=== PATIENT | male | born 1960 | race Hispanic/Latino ===

== ENCOUNTER 2019-09-11 10:28 | Emergency (ER) | payer OTHER ==
[2019-09-11 10:37] VITALS: BP 127/87
--- NOTE | 2019-09-11 10:57 | Emergency Department Report ---
ED Extremity Problem HPI - General Chief complaint: Extremity Injury, Lower Stated complaint: LEFT Time Seen by Provider: 09/11/19 10:51 Source: patient Mode of arrival: Ambulatory Limitations: No Limitations - History of Present Illness Initial comments: 58-year-old male presents to the emergency room complaining of right lower leg swelling redness and inflamed. Patient states he has had a history of this before. Patient states that he has not been on his Lasix. Patient states he is scratched his leg and now has an opening for him. This is all been going on for the last 3 weeks. Patient currently is at a detox center and has been out of his meds and not able to follow-up with his primary care provider. Patient denies any fever chills no nausea no vomiting no chest pain MD Complaint: extremity pain, extremity swelling Onset/Timin -: week(s) Location: right History of Same: Yes Severity scale (0 -10): 5 Quality: aching Consistency: constant Improves with: medication (Lasix and antibiotics) Worsens with: nothing - Related Data Home Medications Medication Instructions Recorded Confirmed Last Taken Furosemide [Lasix TAB] 1 tab PO DAILY 09/11/19 09/11/19 Unknown Olmesartan/Hydrochlorothiazide 1 tab PO DAILY 09/11/19 09/11/19 Unknown [Olmesartan-Hctz 40-25 mg Tab] Previous Rx's Medication Instructions Recorded Last Taken Type Doxycycline Hyclate 100 mg PO BID 10 Days #20 tablet. 09/11/19 Unknown Rx predniSONE [Deltasone] 10 mg PO QDAY 5 Days #5 tab 09/11/19 Unknown Rx Allergies Allergy/AdvReac Type Severity Reaction Status Date / Time No Known Allergies Allergy Unverified 09/11/19 10:32 ED Review of Systems ROS: Stated complaint: LEFT Other details as noted in HPI ED Past Medical Hx - Past Medical History Previous Medical History?: Yes Hx Psychiatric Treatment: Yes (Opiod dependency) Additional medical history: right leg pain/swelling, Back pain - Surgical History Past Surgical History?: Yes Additional Surgical History: Back - Social History Smoking Status: Current Every Day Smoker Substance Use Type: Alcohol, Non Opiate Pain, Prescribed - Medications Home Medications: Home Medications Medication Instructions Recorded Confirmed Last Taken Type Doxycycline Hyclate 100 mg PO BID 10 Days #20 tablet. 09/11/19 Unknown Rx Furosemide [Lasix TAB] 1 tab PO DAILY 09/11/19 09/11/19 Unknown History Olmesartan/Hydrochlorothiazide 1 tab PO DAILY 09/11/19 09/11/19 Unknown History [Olmesartan-Hctz 40-25 mg Tab] predniSONE [Deltasone] 10 mg PO QDAY 5 Days #5 tab 09/11/19 Unknown Rx ED Physical Exam - General Limitations: No Limitations General appearance: alert, in no apparent distress - Head Head exam: Present: atraumatic, normocephalic - Eye Eye exam: Present: normal appearance - ENT ENT exam: Present: mucous membranes moist - Expanded Lower Extremity Exam Right Lower Leg exam: Present: full ROM, tenderness, swelling, erythema. Absent: palpable cord, Connie's sign Ankle exam: Present: full ROM, swelling Foot/Toe exam: Present: full ROM, swelling Neuro vascular tendon exam: Present: no vascular compromise Gait: Positive: observed and normal - Back Exam Back exam: Present: normal inspection - Neurological Exam Neurological exam: Present: alert, oriented X3, normal gait ( ) - Psychiatric Psychiatric exam: Present: normal affect, normal mood - Expanded Skin Exam Expanded Distribution of rash: RLE Description of rash: Present: tenderness, erythematous, swelling ED Course Vital Signs 09/11/19 10:35 Temperature 98.2 F Pulse Rate 86 Respiratory 16 Rate Blood Pressure 127/87 O2 Sat by Pulse 96 Oximetry ED Medical Decision Making - Medical Decision Making 58-year-old male presents to the emergency room complaining of right lower leg swelling redness and inflamed. Patient states he has had a history of this before. Patient states that he has not been on his Lasix. Patient states he is scratched his leg and now has an opening for him. This is all been going on for the last 3 weeks. Patient currently is at a detox center and has been out of his meds and not able to follow-up with his primary care provider. Patient denies any fever chills no nausea no vomiting no chest pain Critical care attestation.: If time is entered above; I have spent that time in minutes in the direct care of this critically ill patient, excluding procedure time. ED Disposition Clinical Impression: Cellulitis of right lower limb Disposition: [id number] TO HOME OR SELFCARE Is pt being admited?: No Does the pt Need Aspirin: No Condition: Stable Instructions: Cellulitis (ED) Additional Instructions: Complete antibiotics as prescribed. Take prednisone as prescribed and start back on your Lasix. Follow-up with your primary care provider. You can take Tylenol or ibuprofen as needed for pain management. Prescriptions: predniSONE [Deltasone] 10 mg PO QDAY 5 Days #5 tab Doxycycline Hyclate 100 mg PO BID 10 Days #20 tablet. Referrals: Your, primary care provider [Other] - 3-5 Days
== END 2019-09-11 10:52 | disposition home or self-care (01) ==
LOC: ED 10:28
DX: L03.115 Cellulitis of right lower limb (principal); F17.200 Nicotine dependence, unspecified, uncomplicated; F15.10 Other stimulant abuse, uncomplicated
CPT/HCPCS: 99282